=== PATIENT | male | born 1935 | race Caucasian/White ===

== ENCOUNTER → 2016-09-20 | Outpatient (CLI) | payer MEDICARE | END | disposition home or self-care (01) | LOC: PCVCCLINIC 12:02 | PROVIDERS: ATTEND Internal Medicine | DX: I50.9 Heart failure, unspecified (principal); I25.10 Atherosclerotic heart disease of native coronary artery without angina pectoris; I34.0 Nonrheumatic mitral (valve) insufficiency; I65.29 Occlusion and stenosis of unspecified carotid artery; E78.00 Pure hypercholesterolemia, unspecified; Z95.2 Presence of prosthetic heart valve | CPT/HCPCS: 80061; 93005; G0463 ==

== ENCOUNTER → 2017-03-21 | Outpatient (CLI) | payer MEDICARE ==
--- NOTE | 2017-03-21 16:29 | PCVCIMAG ---
APPROVED REPORT Indications Stenosis Risk Factors Hypertension: Doppler Spectral Velocity Analysis PSV / EDVPSV / EDV ECA (R) 257 / 8 cm/sECA (L) 309 / cm/s dICA (R) 60 / 21 cm/sdICA (L) 40 / 14 cm/s Karl (R) 94 / 30 cm/smICA (L) 151 / 31 cm/s pICA (R) 108 / 10 cm/spICA (L) 145 / 13 cm/s Bulb (R) 73 / 8 cm/sBulb (L) 113 / 15 cm/s dCCA (R) 91 / 18 cm/sdCCA (L) 133 / 19 cm/s mCCA (R) 92 / 16 cm/smCCA (L) 103 / 14 cm/s Vert (R) 59 / 12 cm/sVert (L) 53 / 12 cm/s ICA/CCA 1.19ICA/CCA 1.14 Basic Measurements Blood Pressure: Pulses: Right Left RightLeft Brachial(Sitting) 112/91bvUm857/62mmHgTemporal Real Time B-Mode Imaging Vert. (R)AntegradeVert. (L)Antegrade Findings The right carotid bulb has mild plaque. The right proximal internal carotid artery shows no significant stenosis, changes of endarterectomy. The right common carotid artery shows no significant stenosis. The right external carotid artery shows >90% stenosis. The left carotid bulb has moderate calcified plaque. The left proximal internal carotid artery shows 40-50% stenosis. The left common carotid artery shows no significant stenosis. The left external carotid artery shows >90% stenosis. Conclusion 1. Right internal carotid artery plaquing; prior CEA 2. Left internal carotid artery stenosis (40-50%) 3. Antegrade vertebral flow Similar to a study dated 05/2016
--- NOTE | 2017-03-21 16:41 | PCVCIMAG ---
APPROVED REPORT Study performed: 03/21/2017 14:53:27 EXAM: Comprehensive 2D, Doppler, and color-flow Echocardiogram Patient Location: Echo lab Status: routine Other Information Study Quality: Good Indications CABG, AVR, 2D Dimensions LVEF(%): 46.79 (>50%) IVSd: 8.98 (7-11mm)LVOT Diam: 19.85 (18-24mm) LVDd: 63.98 mm PWd: 9.82 (7-11mm)Ascending Ao: 26.82 (22-36mm) LVDs: 48.64 (25-40mm) Left Atrium: 54.05 (27-40mm) Aortic Root: 22.45 mm LV Single Plane 2CH: 69.22 %Lui's LVEF: 46.79 % Volumes Left Atrial Volume (Systole) Single Plane 4CH: 71.63 mLSingle Plane 2CH: 84.77 mL LA ESV Index: 40.00 mL/m2 Aortic Valve AoV Peak Olaf.: 2.42 m/s AO Peak Gr.: 23.52 mmHgLVOT Max P.64 mmHg AO Mean Gr.: 12.36 mmHgLVOT Mean P.68 mmHg AO V2 Mean: 1.68 m/sLVOT Max V: 0.93 m/s AO V2 VTI: 55.29 cmLVOT Mean V: 0.60 m/s BERNARDO (VTI): 1.13 [id number] V1 VTI: 20.20 cm BERNARDO Vmax: 1.18 cm2 SV (LVOT): 62.50 mL Tricuspid Valve TR Peak Olaf.: 3.62 m/s TR Peak Gr.: 52.49 mmHg Left Ventricle The left ventricle is normal size. Inferolateral hypokinesis There is normal left ventricular wall thickness. Left ventricular systolic function is lower limits of normal. LVEF is 45-50%. Right Ventricle The right ventricle is normal size. The right ventricular systolic function is normal. Atria The left atrium size is dilated The right atrium size is normal. Aortic Valve Bioprosthetic Aortic Valve #25 Magna. BERNARDO is 1.2cm2. Peak gradient is 24mmhg. Mean is 12mmhg. No aortic regurgitation is present. Mitral Valve Mild-moderate mitral annular calcification. Mild sclerotic leaflet changes Eccentric, moderately severe to severe mitral regurgitation. No evidence of mitral valve stenosis. Tricuspid Valve The tricuspid valve is normal in structure. Trace tricuspid regurgitation. Pulmonary artery pressure is 55mmhg. Pulmonic Valve The pulmonary valve is normal in structure. Trace pulmonic regurgitation. Great Vessels The aortic root is normal in size. IVC is normal in size and collapses with >50% inspiration Pericardium There is no pericardial effusion. <Conclusion> Left ventricular systolic function is lower limits of normal. Inferolateral hypokinesis. LVEF 45-50%. The left atrium size is dilated Bioprosthetic Aortic Valve #25 Magna. BERNARDO is 1.2cm2. Peak gradient is 24mmHg. Mean is 12mmHg. No aortic regurgitation Mild-moderate mitral annular calcification. Mild sclerotic leaflet changes. Eccentric, moderately severe to severe mitral regurgitation. Trace tricuspid regurgitation. Pulmonary artery pressure is 55mmhg. There is no pericardial effusion. Similar to a study dated 01/2016
== END | disposition home or self-care (01) ==
LOC: PCVCCLINIC 13:46
PROVIDERS: ATTEND Internal Medicine
DX: I65.23 Occlusion and stenosis of bilateral carotid arteries (principal); I34.0 Nonrheumatic mitral (valve) insufficiency; I07.1 Rheumatic tricuspid insufficiency; I37.1 Nonrheumatic pulmonary valve insufficiency; I25.10 Atherosclerotic heart disease of native coronary artery without angina pectoris; I11.0 Hypertensive heart disease with heart failure; I50.32 Chronic diastolic (congestive) heart failure; I48.0 Paroxysmal atrial fibrillation; Z95.2 Presence of prosthetic heart valve; Z95.1 Presence of aortocoronary bypass graft; Z87.891 Personal history of nicotine dependence; Z88.0 Allergy status to penicillin; Z88.8 Allergy status to other drugs, medicaments and biological substances; Z79.82 Long term (current) use of aspirin
CPT/HCPCS: 80061; 93005; 93306; 93880; G0463

== ENCOUNTER → 2017-08-13 | Outpatient (CLI) | payer MEDICARE | END | disposition home or self-care (01) | LOC: PCVCCLINIC 11:04 | PROVIDERS: ATTEND Internal Medicine | DX: I25.10 Atherosclerotic heart disease of native coronary artery without angina pectoris (principal); I11.0 Hypertensive heart disease with heart failure; I50.32 Chronic diastolic (congestive) heart failure; I48.0 Paroxysmal atrial fibrillation; I65.23 Occlusion and stenosis of bilateral carotid arteries; E78.5 Hyperlipidemia, unspecified; I34.0 Nonrheumatic mitral (valve) insufficiency; Z95.2 Presence of prosthetic heart valve; Z87.891 Personal history of nicotine dependence; Z79.899 Other long term (current) drug therapy; Z79.82 Long term (current) use of aspirin | CPT/HCPCS: 80061; 93005; G0463 ==

== ENCOUNTER → 2018-03-24 | Outpatient (CLI) | payer MEDICARE | END | disposition home or self-care (01) | LOC: PCVCIMAG 12:48 | DX: I25.10 Atherosclerotic heart disease of native coronary artery without angina pectoris (principal); I11.0 Hypertensive heart disease with heart failure; I50.32 Chronic diastolic (congestive) heart failure; I34.0 Nonrheumatic mitral (valve) insufficiency; I48.0 Paroxysmal atrial fibrillation; E78.5 Hyperlipidemia, unspecified; I65.23 Occlusion and stenosis of bilateral carotid arteries; Z95.2 Presence of prosthetic heart valve; Z79.82 Long term (current) use of aspirin; Z79.899 Other long term (current) drug therapy; R00.1 Bradycardia, unspecified | CPT/HCPCS: 80061; 93005; 93306; 93880; G0463 ==

== ENCOUNTER → 2018-10-13 | Outpatient (CLI) | payer MEDICARE | END | disposition home or self-care (01) | LOC: PCVCCLINIC 11:46 | PROVIDERS: ATTEND Internal Medicine | DX: I25.10 Atherosclerotic heart disease of native coronary artery without angina pectoris (principal); I11.0 Hypertensive heart disease with heart failure; I50.32 Chronic diastolic (congestive) heart failure; I34.0 Nonrheumatic mitral (valve) insufficiency; I48.0 Paroxysmal atrial fibrillation; E78.5 Hyperlipidemia, unspecified; I65.23 Occlusion and stenosis of bilateral carotid arteries; K21.9 Gastro-esophageal reflux disease without esophagitis; Z95.2 Presence of prosthetic heart valve; Z79.899 Other long term (current) drug therapy; Z87.891 Personal history of nicotine dependence | CPT/HCPCS: 36415; 80061; 93005; G0463 ==

== ENCOUNTER → 2019-04-13 | Outpatient (CLI) | payer MEDICARE ==
--- NOTE | 2019-04-13 13:57 | PCVCIMAG ---
APPROVED REPORT Indications Stenosis Risk Factors Hypertension: Hyperlipidemia Surgery/Intervention Endarterectomy: right Doppler Spectral Velocity Analysis PSV / EDVPSV / EDV ECA (R) 228 / 11 cm/sECA (L) 403 / 0 cm/s dICA (R) 61 / 15 cm/sdICA (L) 70 / 23 cm/s Karl (R) 76 / 14 cm/smICA (L) 140 / 23 cm/s pICA (R) 60 / 8 cm/spICA (L) 171 / 13 cm/s Bulb (R) 77 / 8 cm/sBulb (L) 135 / 15 cm/s dCCA (R) 113 / 13 cm/sdCCA (L) 121 / 15 cm/s mCCA (R) 92 / 9 cm/smCCA (L) 121 / 9 cm/s Vert (R) 27 / 7 cm/sVert (L) 33 / 11 cm/s ICA/CCA 1.41 ICA/CCA 0.84 Basic Measurements Blood Pressure: Pulses: Right Left RightLeft Brachial(Sitting) 116/48nrBy859/60mmHgTemporal Real Time B-Mode Imaging Vert. (R)AntegradeVert. (L)Antegrade Findings RIGHT CAROTID: The carotid bulb has minimal plaque. The proximal internal carotid artery shows no significant stenosis. The common carotid artery shows no significant stenosis. The external carotid artery shows 70% stenosis. LEFT CAROTID: The carotid bulb has moderate plaque. The proximal internal carotid artery shows 50-60% stenosis. The common carotid artery shows no significant stenosis. The external carotid artery shows 90% stenosis. Conclusion No significant stenosis of the right internal carotid artery with minimal plaque. 50-60% stenosis of the left internal carotid artery with moderate plaque. No change since March 2018 study.
--- NOTE | 2019-04-13 14:56 | PCVCIMAG ---
APPROVED REPORT Study performed: 04/13/2019 13:52:24 EXAM: Comprehensive 2D, Doppler, and color-flow Echocardiogram Patient Location: Echo lab Status: routine BSA: 2.02 HR: 57 bpmBP: 124/60 mmHg Rhythm: Bradycardia Other Information Study Quality: Adequate Indications CAD #25 Magna bioprosthetic aortic valve, mitral regurgitation, parox a fib 2D Dimensions IVSd: 10.97 (7-11mm)LVOT Diam: 25.34 (18-24mm) LVDd: 56.47 mm PWd: 11.20 (7-11mm)Ascending Ao: 35.01 (22-36mm) LVDs: 41.56 (25-40mm) Left Atrium: 55.60 (27-40mm) Aortic Root: 35.58 mm LV Single Plane 4CH: 58.80 % LV Single Plane 2CH: 51.65 % Biplane EF: 56.6 % Volumes Left Atrial Volume (Systole) Single Plane 4CH: 116.29 mLSingle Plane 2CH: 104.76 mL LA ESV Index: 56.00 mL/m2 Aortic Valve AoV Peak Olaf.: 2.71 m/s AO Peak Gr.: 29.31 mmHgLVOT Max P.95 mmHg AO Mean Gr.: 13.33 mmHgLVOT Mean P.28 mmHg AO V2 Mean: 1.62 m/sLVOT Max V: 1.06 m/s AO V2 VTI: 65.00 cmLVOT Mean V: 0.70 m/s BERNARDO (VTI): 1.79 [id number] V1 VTI: 23.14 cm BERNARDO Vmax: 1.97 cm2 SV (LVOT): 116.62 mL Mitral Valve IVRT: 100.35 ms Pulmonary Valve PV Peak Olaf.: 1.23 m/sPV Peak Gr.: 6.09 mmHg Pulmonary Vein P Vein S: 0.29 m/sP Vein A: 0.36 m/s P Vein D: 0.63 m/sP Vein A Dur.: 128.0 msec P Vein S/D Ratio: 0.46 Tricuspid Valve TR Peak Olaf.: 2.80 m/s TR Peak Gr.: 31.29 mmHg Left Ventricle The left ventricle is normal size. There is normal LV segmental wall motion. There is normal left ventricular wall thickness. Left ventricular systolic function is normal. The left ventricular ejection fraction is within the normal range. LVEF is 55-60%. Grade II - pseudonormal filling dynamics. Right Ventricle The right ventricle is normal size. The right ventricular systolic function is normal. Atria Left atrium is severely dilated. Right atrium is severely dilated. Aortic Valve Normally functioning #25 Magna bioprosthetic aortic valve. No aortic regurgitation is present. There is no aortic valvular stenosis. Calculated aortic valve area is 1.8 cm2 (Peak gradient of 29 mmHg and mean pressure gradient of 13 mmHg). Mitral Valve Posterior mitral annular calcification present. Anterior leaflet prolapse Moderate to moderately severe mitral regurgitation. No evidence of mitral valve stenosis. Tricuspid Valve The tricuspid valve is normal in structure. Mild tricuspid regurgitation with PAP of 38 mmHg. Pulmonic Valve The pulmonary valve is normal in structure. There is no pulmonic valvular regurgitation. Great Vessels The aortic root is normal in size. IVC is normal in size and collapses >50% with inspiration. Pericardium There is no pericardial effusion. There is no pleural effusion. <Conclusion> Left ventricular systolic function is normal. There is normal LV segmental wall motion. LVEF is 55-60%. Both atria are dilated. Normally functioning #25 Magna bioprosthetic aortic valve. No aortic valvular stenosis or insufficiency. Calculated aortic valve area is 1.8 cm2 (Peak gradient of 29 mmHg and mean pressure gradient of 13 mmHg). Posterior mitral annular calcification present. Anterior leaflet prolapse. Moderate to moderately severe mitral regurgitation, difficult to characterize. Mild tricuspid regurgitation with pulmonary artery pressure of 38 mmHg. There is no pericardial effusion.
== END | disposition home or self-care (01) ==
LOC: PCVCIMAG 13:12
PROVIDERS: ATTEND Internal Medicine
DX: I08.1 Rheumatic disorders of both mitral and tricuspid valves (principal); I65.22 Occlusion and stenosis of left carotid artery; Z95.2 Presence of prosthetic heart valve; Z88.1 Allergy status to other antibiotic agents
CPT/HCPCS: 36415; 80061; 93005; 93306; 93880; G0463

== ENCOUNTER → 2019-08-20 | Outpatient (CLI) | payer MEDICARE | END | disposition home or self-care (01) | LOC: PCVCCLINIC 13:00 | PROVIDERS: ATTEND Internal Medicine | DX: I25.10 Atherosclerotic heart disease of native coronary artery without angina pectoris (principal); I11.0 Hypertensive heart disease with heart failure; I50.32 Chronic diastolic (congestive) heart failure; I48.0 Paroxysmal atrial fibrillation; I34.0 Nonrheumatic mitral (valve) insufficiency; E78.5 Hyperlipidemia, unspecified; I65.23 Occlusion and stenosis of bilateral carotid arteries; I82.522 Chronic embolism and thrombosis of left iliac vein; K21.9 Gastro-esophageal reflux disease without esophagitis; Z95.2 Presence of prosthetic heart valve; Z95.1 Presence of aortocoronary bypass graft; Z79.82 Long term (current) use of aspirin; Z87.891 Personal history of nicotine dependence; Z88.8 Allergy status to other drugs, medicaments and biological substances | CPT/HCPCS: 36415; 80061; 93005; G0463 ==